=== PATIENT | male | born 1995 | race Caucasian/White ===

== ENCOUNTER 2019-11-22 17:15 | Emergency (ER) | payer OTHER ==
[~2019-11-22] VITALS: Ht 177.8 cm; Wt 90.7 kg
[2019-11-22 17:21] VITALS: BP_SYST 158
--- NOTE | 2019-11-22 17:30 | NUR ---
Patient triaged and placed in waiting room. VSS and patient appears in no acute distress at this time. Accompanied by his , awaiting available bed, and MD notified of need for MSE.
[2019-11-22 17:45] VITALS: BP_SYST 158
--- NOTE | 2019-11-22 17:45 | NUR ---
Patient to ER bed 5 to gown for evaluation. Side rails up. Report given to EDNA Oscar.
--- NOTE | 2019-11-22 17:48 | NUR ---
ER BENJAMIN Jin examining patient.
--- NOTE | 2019-11-22 17:50 | NUR ---
pt arrives from home w/ c/o a sore throat, fever, and cough. Pt denies any other symptoms.
--- NOTE | 2019-11-22 17:55 | NUR ---
Flu and strep swab collected and sent to lab.
[2019-11-22 18:17] LABS: STREPTOCOCCUS A SCREEN (RAPID) NEGATIVE (NEGATIVE)
[2019-11-22 18:25] LABS: INFLUENZA A&B ANTIGEN SCREEN NEGATIVE FOR A & B (NEGATIVE)
[2019-11-22] MEDS ORDERED: KETOROLAC TROMETHAMINE 60 MG/2 ML VIAL IM ONE (18:30)
--- NOTE | 2019-11-22 18:51 | NUR ---
Patient given written and verbal discharge instructions and verbalizes understanding. ER MD discussed with patient the results and treatment provided. Patient in stable condition. ID arm band removed. Rx of Prednisone, motrin, and augmentin given. Patient educated on pain management and to follow up with PMD. Pain Scale 3/10. Opportunity for questions provided and answered. Medication side effect fact sheet provided.
--- NOTE | 2019-11-24 15:42 | NUR ---
Received a positive result for Strep group A by lab , Dr Vaca notified, per Dr Vaca patient was given Augmentin prior discharge by Annabel Ross NP, no futher treatment needed at this time.
== END 2019-11-22 18:47 | disposition home or self-care (01) ==
LOC: SED 17:15
DX: J36 Peritonsillar abscess (principal); R03.0 Elevated blood-pressure reading, without diagnosis of hypertension
CPT/HCPCS: 86403; 86710; 87081; 99283; J1885; 36415

== ENCOUNTER 2019-12-06 16:42 | Emergency (ER) | payer OTHER ==
[~2019-12-06] VITALS: Ht 177.8 cm; Wt 86.2 kg
[2019-12-06 17:02] VITALS: BP_SYST 138
[2019-12-06 17:37] LABS: BILIRUBIN,URINE NEGATIVE (NEGATIVE); CLARITY/URINE CLEAR (CLEAR); COLOR,URINE YELLOW (YELLOW); GLUCOSE,URINE NEGATIVE (NEGATIVE); KETONES,URINE NEGATIVE (NEGATIVE); LEUKOCYTE ESTERASE ,URINE NEGATIVE (NEGATIVE); NITRITE, URINE NEGATIVE (NEGATIVE); PROTEIN URINE NEGATIVE (NEGATIVE); UROBILINOGEN,URINE 0.2 (0.2-1.0)
[2019-12-06 17:50] LABS: BLOOD, URINE TRACE (NEGATIVE)
[2019-12-06 17:56] LABS: RBC,URINE NONE SEEN /HPF (0-3); WBC,URINE NONE SEEN /HPF (0-3)
[2019-12-06 17:57] LABS: BACTERIA,URINE MODERATE /HPF (None Seen)
[2019-12-06 18:40] VITALS: BP_SYST 138
== END 2019-12-06 18:40 | disposition home or self-care (01) ==
LOC: SED 16:42
DX: N50.9 Disorder of male genital organs, unspecified (principal)
CPT/HCPCS: 76870-TC; 81000-TC; 87086; 99284